=== PATIENT | female | born 1965 | race Caucasian/White ===

== ENCOUNTER 2025-09-23 12:08 | Emergency (ER) | payer OTHER ==
[~2025-09-23] VITALS: Ht 167.6 cm; Wt 88.5 kg
[2025-09-23] MEDS ORDERED: IBUP-1490 PO (12:51)
[2025-09-23] MEDS ORDERED: CLIN300C12 PO (12:51)
[2025-09-23] MEDS ORDERED: CLINDAMYCIN HCL 150 MG CAPSULE ONE (12:58)
[2025-09-23] MEDS ORDERED: TDAP [DIPH/PERTUSSIS/TET] 0.5 ML VIAL IM ONE ×2 (12:58→13:00)
[2025-09-23] MEDS ORDERED: KETOROLAC TROMETHAMINE INJ 30 MG/ML VIAL ONE (12:58)
[2025-09-23] MEDS: KETOROLAC TROMETHAMINE INJ 30 MG/ML VIAL IM ONE (13:00)
[2025-09-23] MEDS: CLINDAMYCIN HCL 150 MG CAPSULE PO ONE (13:00)
[2025-09-23 13:16] VITALS: BP 131/91; TEMP 98.3; O2SAT 98
== END 2025-09-23 13:16 | disposition home or self-care (01) ==
LOC: ER 12:21
DX: S81.832A Puncture wound without foreign body, left lower leg, initial encounter (principal); Z88.0 Allergy status to penicillin; W55.01XA Bitten by cat, initial encounter; Y93.89 Activity, other specified; Y92.89 Other specified places as the place of occurrence of the external cause; Y99.9 Unspecified external cause status
CPT/HCPCS: 99283; 96372; J1885; A6403; 90715

== ENCOUNTER 2025-10-01 16:56 | Emergency (ER) | payer OTHER ==
[~2025-10-01] VITALS: Ht 154.9 cm; Wt 90.7 kg
[~2025-10-01 16:56] MED LIST: CLIN300C12 PO; IBUP-1490 PO
[2025-10-01] MEDS ORDERED: SULFAMETH/TRIMETH 800/160 MG 1 UDTAB TABLET PO ONE (17:30)
[2025-10-01] MEDS ORDERED: METRONIDAZOLE 500 MG TABLET ONE (17:48)
[2025-10-01] MEDS ORDERED: DOXYCYCLINE HYCLATE (100 MG) 100 MG TABLET ONE (17:48)
[2025-10-01] MEDS ORDERED: MUPIROCIN OINT 2% 22 GM TUBE ONE (17:49)
[2025-10-01] MEDS: METRONIDAZOLE 500 MG TABLET PO ONE (18:06)
[2025-10-01] MEDS: MUPIROCIN OINT 2% 22 GM TUBE TP ONE (18:06)
[2025-10-01] MEDS: DOXYCYCLINE HYCLATE (100 MG) 100 MG TABLET PO ONE (18:06)
[2025-10-01] MEDS ORDERED: METR500T PO (18:09)
[2025-10-01] MEDS ORDERED: DOXY-226 PO (18:09)
[2025-10-01 18:31] VITALS: BP 142/85; TEMP 98; O2SAT 97
== END 2025-10-01 18:31 | disposition home or self-care (01) ==
LOC: ER 16:56
DX: S81.852A Open bite, left lower leg, initial encounter (principal); S81.851A Open bite, right lower leg, initial encounter; L03.116 Cellulitis of left lower limb; L03.115 Cellulitis of right lower limb; R03.0 Elevated blood-pressure reading, without diagnosis of hypertension; Z88.0 Allergy status to penicillin; W55.01XA Bitten by cat, initial encounter; Y93.89 Activity, other specified; Y92.89 Other specified places as the place of occurrence of the external cause; Y99.8 Other external cause status
CPT/HCPCS: 73590-TC; 87070-TC